=== PATIENT | female | born 1970 | race Caucasian/White ===

== ENCOUNTER → 2021-05-26 09:28 | Outpatient (CLI) | payer OTHER, SELFPAY ==
--- NOTE | ~2021-05-26 | XR_ITS ---
EXAMINATION: XR shoulder RT min 2V DATE: 05/26/2021 09:50 INDICATION: Right shoulder pain and axillary lump TECHNIQUE: AP internally and externally rotated, AP oblique externally rotated and axillary views of the right shoulder were obtained. COMPARISON: None FINDINGS: Normal alignment. No fracture. Glenohumeral joint is normal. Mild acromioclavicular osteoarthritis w ith mild cystic change at the lateral head of the right clavicle. Soft tissues are unremarkable. Visu alized portions of the lungs are clear. IMPRESSION: Mild right acromioclavicular osteoarthritis. Reviewed, dictated and finalized at location B.
== END ==
PROVIDERS: PCP Family Medicine; Visit Provider Physician Assistant
DX: M19.011 Primary osteoarthritis, right shoulder (principal)
CPT/HCPCS: 73030

== ENCOUNTER → 2022-03-05 15:34 | Outpatient (CLI) | payer SELFPAY ==
--- NOTE | ~2022-03-05 | XR_ITS ---
XR hip LT min 2V DATE: 03/05/2022 16:43 INDICATION: Left hip pain TECHNIQUE: AP and lateral views COMPARISON: None FINDINGS: No fracture or dislocation, avascular necrosis or bone destruction. Left hip joint space is well preserved. The pubic symphysis and included portions of the sacroiliac joints are intact. IMPRESSION: Negative left hip Reviewed, dictated and finalized at location A. IMPRESSION: Negative left hip
--- NOTE | ~2022-03-05 | XR_ITS ---
XR cervical spine 4-5V DATE: 03/05/2022 16:43 INDICATION: Neck pain TECHNIQUE: Standing AP, open-mouth, lateral and swimmer views COMPARISON: None FINDINGS: There is straightening of the cervical spinal which may be due to muscle spasm. C1 and C2 are normally aligned and the odontoid process is intact. No fracture or dislocation or locked facet or prevertebral soft tissue swelling. There is moderate degenerative disc disease and approximately 1.5 mm retrolisthesis at C5-6. There is severe degenerative disc disease at C6-7. There is uncovertebral joint spurring at C5-6 and C6-7. IMPRESSION: Degenerative disc disease and uncovertebral joint spurring at C5-6 and C6-7; associated 1 .5 mm retrolisthesis at C5-6 Straightening of the cervical spine Reviewed, dictated and finalized at location A. IMPRESSION: Degenerative disc disease and uncovertebral joint spurring at C5-6 and C6-7; associated 1.5 mm retrolisthesis at C5-6 Straightening of the cervical spine
== END ==
PROVIDERS: PCP Family Medicine; Visit Provider Physician Assistant
DX: M25.552 Pain in left hip (principal); M50.323 Other cervical disc degeneration at C6-C7 level
CPT/HCPCS: 72050; 73502